=== PATIENT | male | born 1975 | race Caucasian/White ===

== ENCOUNTER 2018-06-16 11:15 | Emergency (ER) | payer SELFPAY ==
[2018-06-16 11:23] VITALS: BMI 37.1
--- NOTE | 2018-06-16 11:26 | PDOC ---
History of Present Illness - General Chief Complaint: Injury Stated Complaint: FALL / HIP PAIN Time Seen by Provider: 06/16/18 11:22 History Source: Patient Exam Limitations: Language Barrier - History of Present Illness Initial Comments: 42 yo M w a pmh of asthma and NIDDM presents to the ER with left sided hip pain after he fell 14 feet off of a ladder while he was working on a ceiling. He states that his left hip is in a significant amount of pain. He says when he fell he did not hit his head or experience any LOC. He also denies taking blood thinners. he states that the ladder fell out from underneath him and then he landed on both of his foot and his back went into the wall. He also states that he hears ringing in his ears but that the ringing began this morning at 11 am before his fall occurred and has not changed in character. He has a hard time walking on his own and took a personal taxi to the ER. He denies recent fevers, chills, infections, dysuria, frequency, or urgency. PCP: Patient doesn't remember the name but says he follows at the [facility] Allergies: Penicillins PSH: None reported Social Hx: Drinks alcohol recreationally. Denies smoking or other substance usage Past History - Past Medical History Allergies/Adverse Reactions: Allergies Allergy/AdvReac Type Severity Reaction Status Date / Time Penicillins Allergy Itching Verified 06/16/18 11:19 Home Medications: Ambulatory Orders Unobtainable 06/16/18 Asthma: Yes COPD: No - Immunization History Immunization Up to Date: Yes - Suicide/Smoking/Psychosocial Hx Smoking Status: Yes Smoking History: Never smoked Number of Cigarettes Smoked Daily: 0 Information on smoking cessation initiated: No Hx Alcohol Use: No Drug/Substance Use Hx: No Review of Systems - Review of Systems Able to Perform ROS?: Yes Comments:: CONSTITUTIONAL: Absent: fever, no chills, no fatigue EYES: Absent: visual changes ENT: Absent: ear pain, no sore throat CARDIOVASCULAR: Absent: chest pain, no palpitations RESPIRATORY: Absent: cough, no SOB GI: Absent: abdominal pain, no nausea, no vomiting, no constipation, no diarrhea GENITOURINARY: Absent: dysuria, no frequency, no hematuria MUSKULOSKELETAL: Present: Back pain, arthralgia Absent: no myalgia SKIN: Present: rash NEURO: Present: headache *Physical Exam - Vital Signs Last Vital Signs Temp Pulse Resp BP Pulse Ox 98.5 F 88 16 145/101 H 97 06/16/18 11:19 06/16/18 11:19 06/16/18 11:19 06/16/18 11:19 06/16/18 11:19 - Physical Exam Comments: General: Patient is alert and in no acute distress. Speech is clear and appropriate. Head: Atraumatic and nontender. HEENT: There is a left eye pterygium. Pupils are equal round and reactive to light, extraocular movements are intact. The tympanic membranes are clear, no hemotympanum. No facial deformity/tenderness, no septal hematoma. The oropharynx is clear. Neck: The trachea is midline, there is no stridor. There is no midline cervical spine tenderness, full range of motion of neck. Chest: Nontender, no ecchymosis or abrasions. Heart: S1-S2, regular rate and rhythm. No murmurs. Lungs: Clear to auscultation bilaterally. Symmetric chest rise. Abdomen: Soft/nontender/nondistended. Bowel sounds are normal. There is no abdominal or flank ecchymosis. Back/Pelvis: There is no midline spine tenderness or step-off. Pelvis is stable but tender. Extremities: There is no extremity deformity or joint swelling. No focal bony tenderness throughout. 2+ distal pulses throughout. Neuro: Alert and oriented x3. Cranial nerves II through XII are intact. Left foot is 4/5 strength on extention and flexion. 5 out of 5 motor strength x other 3 extremities. [id number] is intact. Skin: There is an abrasion on the lower left side of his back. No hematomas or lacerations. Psych: Affect is appropriate. Rectal Exam: positive: normal exam, normal rectal tone. negative: decreased tone, hemorrhoids ED Treatment Course - LABORATORY CBC & Chemistry Diagram: 06/16/18 13:03 06/16/18 13:03 - RADIOLOGY Radiograph Interpretation: CTAP: Fall. Sequential axial images were obtained from the domes of the diaphragms through the symphysis pubis following the administration of both oral and intravenous contrast material. The lung bases are clear. The liver is enlarged measuring 24 cm in cranial caudad dimension. It is markedly hypodense in texture consistent with diffuse fatty infiltration but no mass lesions are identified within the liver. The spleen is also enlarged measuring 14.9 cm. The pancreas, adrenal glands and kidneys demonstrate no significant abnormalities. There is no evidence of intra-abdominal organ injury. There is no evidence of intra-abdominal or retroperitoneal lymphadenopathy or fluid collections. There is no evidence of pneumoperitoneum, bowel obstruction or intra-abdominal abscess. Examination of the pelvis demonstrates no evidence of pelvic masses, fluid collections or lymphadenopathy. There is no evidence of fracture or acute bony pathology. IMPRESSION: 1. Hepatosplenomegaly with diffuse fatty infiltration of liver. 2. No evidence of intra-abdominal organ injury or acute pathology within the abdomen or pelvis. Lumbar Spine: Medical Decision Making - Medical Decision Making 42 yo M w a pmh of asthma and NIDDM presents to the ER with left sided hip pain after he fell 14 feet off of a ladder while he was working on a ceiling. He states that his left hip is in a significant amount of pain. He says when he fell he did not hit his head or experience any LOC. He also denies taking blood thinners. he states that the ladder fell out from underneath him and then he landed on both of his foot and his back went into the wall. He also states that he hears ringing in his ears but that the ringing began this morning at 11 am before his fall occurred and has not changed in character. He has a hard time walking on his own and took a personal taxi to the ER. He denies recent fevers, chills, infections, dysuria, frequency, or urgency. VS: Hypertensive, otherwise WNL DDx IBNLT: Tramautic injury - Hip fx, ankle injury, vertebral compression fx, Retroperitoneal bleed/injury, renal injury, Brain bleed, carotid dissection. Plan: X-rays, Cat scans, Analgesia, re-assess. imaging is all negative. - Patient feels better after analgesia - He is ambulating well with crutches and requests discharge. Will DC patient with supportive care and PCP fu *DC/Admit/Observation/Transfer Diagnosis at time of Disposition: Injury, Fall from ladder - Discharge Dispostion Disposition: HOME Condition at time of disposition: Stable Decision to Admit order: No - Referrals Referrals: Jr Aguillon DO [Staff Physician] - - Patient Instructions Printed Discharge Instructions: How to Prevent Falls Additional Instructions: You came into the ER after falling from a ladder. PLEASE MAKE SURE TO CALL UP DR. AGUILLON AND SCHEDULE AN APPOINTMENT IN THE NEXT 3 DAYS. Come back to the ER if your pain worsens, you can't walk, lose feeling in your testicles or legs, or have any other new or worsening concerns. Take motrin/advil/ibuprofen as needed for pain control. Thank you for coming to the [facility] ER. We hope you feel better soon! Print Language: TUNISIAN - Post Discharge Activity
[2018-06-16] MEDS ORDERED: ACETAMINOPHEN 325 MG TABLET (FP) PO ONE (11:40)
[2018-06-16] MEDS ORDERED: LIDOCAINE 5% TOPICAL PATCH TP ONE (11:40)
--- NOTE | 2018-06-16 12:21 | PDOC ---
Attending Attestation - Resident Resident Name: MichaelMariano - ED Attending Attestation I have performed the following: I have examined & evaluated the patient, The case was reviewed & discussed with the resident, I agree w/resident's findings & plan, Exceptions are as noted - HPI HPI: 06/16/18 12:16 The patient is a 42 year old male, with a significant PMH of asthma, diabetes mellitus, who presents to the emergency department with left buttocks pain, left lower flank pain and left hip pain s/p fall from ladder prior to arrival. The patient states he was standing on a 14 foot ladder fixing a ceiling vent when he fell approx 14 ft landing on his buttocks. He reports the ladder collapsed for unknown reasons. The patient denies any head injury/ trauma or loss of consciousness. The patient states he can recall all events leading up to and after the fall. The patient also endorses a ringing in his left ear, described as a buzzing noise, which he reports began this morning 2 hours prior to the fall. The patient denies any numbness, tingling or loss of sensation. Denies any weakness. Denies any bowel or bladder incontinence. The patient denies chest pain, shortness of breath, headache and dizziness. Denies fever, chills, nausea, vomit, diarrhea and constipation. Denies dysuria, frequency, urgency and hematuria. Allergies: Penicillins - Physicial Exam PE: 06/16/18 12:21 GENERAL: Awake, alert, and fully oriented, in no acute distress HEAD: No signs of trauma EYES: PERRLA, EOMI, sclera anicteric, +OS medial pterygium ENT: Auricles normal inspection, hearing grossly normal, nares patent, oropharynx clear without exudates. Moist mucosa NECK: Normal ROM, supple, no lymphadenopathy, JVD, or masses LUNGS: Breath sounds equal, clear to auscultation bilaterally. No wheezes, and no crackles HEART: Regular rate and rhythm, normal S1 and S2, no murmurs, rubs or gallops ABDOMEN: Soft, nontender, normoactive bowel sounds. No guarding, no rebound. No masses EXTREMITIES: Pelvis stable. Normal range of motion, no edema. No cords, erythema. +ttp to L buttocks, L lumbar paraspinal ttp. 2+ peripheral pulses x4. WWP. No leg length discrepancies or rotation. NEUROLOGICAL: Normal speech, cranial nerves intact, 5/5 strength in all 4 extremities, normal sensation to light touch in all 4 extremities, normal cerebellar exam, normal gait, normal reflexes and tone. Normal rectal tone. BACK: no midline cervical, thoracic, lumbar ttp, stepoffs or deformities SKIN: +superficial abrasion to L flank, no ecchymosis eFAST exam negative - Medical Decision Making 06/16/18 12:30 42yo M hx DM, asthma presents to the ED with L hip, flank pain after fall from 14 foot ladder. Pt also reporting tinnitus that preceded the fall but no headache, weakness/numbness. Vitals with elevated BP likely 2/2 pain. Given fall from 14 feet, plan for CTAP with IV contrast to eval for RP bleed, bony injury. Pt also reporting some numbness down posterior aspect of LLE, but exam neuro intact. Will obtain CT L spine recons to r/o bony injury, although no midline spinal ttp and normal rectal tone. With regards to tinnitus that preceded the fall, unclear etiology but will obtain CTH for further eval. Pt denies dizziness, headache, neck pain, and is neuro intact otherwise. No clear evidence of distracting injury at this time. 06/16/18 16:49 Trauma w/u negative including CTH, CTAP, CT lumbar spine Pt feeling better Rpt exam with full strength and sensation in b/l LE extremities but persistent pain on palpation of L lumbar paraspinal muscles ABle to ambulate with crutches, states his L back feels sore Return precautions given Pt to f/u with his PMD within 1 week I discussed the physical exam findings, ancillary test results and final diagnoses with the patient. I answered all of the patient's questions. The patient was satisfied with the care received and felt comfortable with the discharge plan and treatment plan. The patient will call their primary care physician within 24 hours to arrange follow-up and will return to the Emergency Department with any new, persistent or worsening symptoms.
[2018-06-16] MEDS ORDERED: ACETAMINOPHEN 325 MG TABLET (FP) ONE ×2 (12:28→12:42)
[2018-06-16] MEDS ORDERED: LIDOCAINE 5% TOPICAL PATCH ONE ×2 (12:29→12:42)
[2018-06-16 13:15] LABS: BASO % 0.9 % (0-2.0); EOS % 2.7 % (0-4.5); HEMATOCRIT 41.7 % (35.4-49); HEMOGLOBIN 13.7 GM/dL (11.7-16.9); LYMPH % 25.8 % (8-40); MCH 27.5 pg (25.7-33.7); MCHC 32.8 g/dl (32.0-35.9); MEAN CELL VOLUME 83.9 fl (80-96); MEAN PLT VOLUME 7.7 fl (7.5-11.1); MONO % 7.5 % (3.8-10.2); NEUT % 63.1 % (42.8-82.8); PLATELET COUNT 216 K/MM3 (134-434); RBC 4.97 M/mm3 (4.00-5.60); RDW 14.1 % (11.9-15.9); WHITE BLOOD COUNT 7.2 K/mm3 (4.0-10.0)
[2018-06-16 13:41] LABS: ALK PHOS 128 U/L (45-117); ANION GAP 7 MMOL/L (8-16); BILIRUBIN,TOTAL 0.3 mg/dL (0.2-1); BLOOD UREA NITROGEN 11 mg/dL (7-18); CALCIUM 8.8 mg/dL (8.5-10.1); CHLORIDE 105 mmol/L (98-107); CO2 29 mmol/L (21-32); CREATININE 0.7 mg/dL (0.55-1.3); GLUCOSE,RANDOM 117 mg/dL (74-106); POTASSIUM 4.3 mmol/L (3.5-5.1); SGOT/AST 132 U/L (15-37); SGPT/ALT 124 U/L (13-61); SODIUM 140 mmol/L (136-145); TOT PROT 7.3 g/dl (6.4-8.2)
[2018-06-16] MEDS ORDERED: KETOROLAC TROMETHAMINE 15 MG/ML VIAL IVPUSH ONE (16:11)
[2018-06-16] MEDS ORDERED: KETOROLAC TROMETHAMINE 15 MG/ML VIAL ONE (16:27)
[2018-06-16 17:10] VITALS: BP 139/81; PULSE 70; TEMP 98.6
[2018-06-16] MEDS ORDERED: LIDOCAINE PATCH REMOVAL MC SCH (22:00)
== END 2018-06-16 17:16 | disposition home or self-care (01) ==
LOC: JER 11:15
PROC: 3E0333Z Introduction of Anti-inflammatory into Peripheral Vein, Percutaneous Approach (ICD-10-PCS; principal; 2018-06-16)
DX: S79.812A Other specified injuries of left hip, initial encounter (principal); W11.XXXA Fall on and from ladder, initial encounter; Y93.89 Activity, other specified; Y92.038 Other place in apartment as the place of occurrence of the external cause; Y99.8 Other external cause status; H93.13 Tinnitus, bilateral; E11.9 Type 2 diabetes mellitus without complications; Z79.84 Long term (current) use of oral hypoglycemic drugs; J45.909 Unspecified asthma, uncomplicated
CPT/HCPCS: 36415; 70450-TC; 72100-TC-FY; 72131-TC; 73523-TC-FY; 73610-TC-LT-FY; 73610-TC-RT-FY; 73630-TC-LT; 73630-TC-RT-FY; 74177-TC; 80053; 85025; 99283-25